=== PATIENT | male | born 1990 | race Hispanic/Latino ===

== ENCOUNTER 2023-02-23 09:16 | Emergency (ER) | payer OTHER, SELFPAY ==
[2023-02-23] MEDS ORDERED: Ondansetron PF 4 MG/2 ML Vial ONE (09:30)
[2023-02-23 09:39] LABS: Hematocrit 45.1 % (42.0-52.0); Hemoglobin 14.7 g/dL (14.0-18.0); Mean Corpuscular HGB CONC 32.7 g/dL (32.0-36.0); Mean Corpuscular Hemoglobin 29.1 pg (27.0-31.0); Red Blood Cell (RBC) Count 5.06 mill/uL (4.70-6.10); White Blood Cell (WBC) Count 5.6 10x3/uL (4.8-10.8)
[2023-02-23 09:40] LABS: #Basophils 0.1 thou/uL (0.0-0.2); #Eosinphils 0.1 thou/uL (0.0-0.7); #Monocytes 0.5 thou/uL (0.11-0.59); #Neutrophils 3.6 thou/uL (1.40-6.50); %Basophils 1.3 % (0.0-1.0); %Eosinophils 0.9 % (0.0-10.0); %Lymphocytes 26.2 % (21.0-51.0); %Monocytes 8.1 % (0.0-10.0); %Neutrophils 63.6 % (42.0-75.0); MDiff Complete? YES; Manual Diff?? NO; Mean Platelet Volume 6.4 fL (7.4-10.4); Platelet Count 238 10x3/uL (130-400); RBC Distribution Width 11.9 % (11.5-14.5)
[2023-02-23 09:54] LABS: Potassium 3.7 mmol/L (3.5-5.1); Sodium 138 mmol/L (136-145)
[2023-02-23 09:55] LABS: Albumin 4.7 g/dL (3.5-5.0); Alkaline Phosphatase 117 U/L (40-110); BUN (Urea Nitrogen) 19 mg/dL (8.9-20.6); Bilirubin, Total 0.7 mg/dL (0.2-1.2); Calc. Creatinine Clearance 0 mL/min (70-130); Calcium 9.8 mg/dL (7.6-10.4); Carbon Dioxide 24 mmol/L (22-29); Chloride 102 mmol/L (98-107); Estimated GFR 118; Globulin 2.9 g/dL (2.4-3.5); Glucose 96 mg/dL (70-105); Protein, Total 7.6 g/dL (6.0-8.3)
[2023-02-23 09:56] LABS: ALT (SGPT) 56 U/L (8-55); AST (SGOT) 41 U/L (5-34); CK (CPK) 177 U/L (30-200); Lipase 16 U/L (8-78); Magnesium 2.1 mg/dL (1.6-2.6)
[2023-02-23 09:57] LABS: Troponin I Less than 0.010 ng/mL (< 0.028)
[2023-02-23 10:33] LABS: #Lymphocytes 1.5 thou/uL (1.20-3.40)
[2023-02-23 23:12] LABS: Anion Gap 16 mmol/L (10-20)
== END 2023-02-23 10:29 | disposition home or self-care (01) ==
LOC: BURERS 09:16
DX: S29.011A Strain of muscle and tendon of front wall of thorax, initial encounter (principal); K29.00 Acute gastritis without bleeding; X50.0XXA Overexertion from strenuous movement or load, initial encounter; Y93.89 Activity, other specified; Y92.61 Building [any] under construction as the place of occurrence of the external cause
CPT/HCPCS: 36415; 71045; 80053; 82550; 83690; 83735; 84484; 85025; 93005; 94760; 96361; 96374; J2405